=== PATIENT | male | born 1975 | race Hispanic/Latino ===

== ENCOUNTER 2020-05-05 11:08 | Inpatient (IN) | payer OTHER, SELFPAY ==
[~2020-05-05] VITALS: Ht 172.7 cm; Wt 108.9 kg
[2020-05-05 12:09] LABS: BASOPHILS % (AUTO) 0.2 % (0.0-5.0); EOSINOPHILS % (AUTO) 0.4 % (0.0-8.0); HEMATOCRIT 46.6 % (42-54); LYMPHOCYTES % (AUTO) 8.5 % (21.0-51.0); MEAN CORPUSCULAR HEMOGLOBIN 29.7 pg (27.0-33.0); MEAN CORPUSCULAR HGB CONC 34.8 g/dL (32.0-36.0); MEAN CORPUSCULAR VOLUME 85.3 fL (79-99); MONOCYTES % (AUTO) 9.2 % (3.0-13.0); NEUTROPHILS % (AUTO) 81.1 % (40.0-77.0); PLATELET COUNT (AUTO) 241 K/uL (130-400); RED BLOOD CELL COUNT(AUTO) 5.46 MIL/uL (4.50-6.20); RED CELL DISTRIBUTION WIDTH 12.2 % (11.0-15.5); WHITE BLOOD COUNT (AUTO) 19.7 K/uL (4.8-10.8)
[2020-05-05 12:24] LABS: CREATININE 0.8 mg/dL (0.5-1.5); POTASSIUM 3.2 mmol/L (3.5-5.1)
[2020-05-05 12:27] LABS: INR 0.99 (0.85-1.15); PROTHROMBIN TIME 10.8 SEC (9.6-11.6)
[2020-05-05 12:28] LABS: PARTIAL THROMBOPLASTIN TIME 24.8 SEC (26.3-35.5)
[2020-05-05 12:29] LABS: ALBUMIN 3.5 g/dL (3.5-5.0); BILIRUBIN,TOTAL 1.9 mg/dL (0.2-1.0); TOTAL PROTEIN, SERUM 8.2 g/dL (6.0-8.3)
[2020-05-05] MEDS ORDERED: VANCOMYCIN 1GM+NS 250ML 250 ML IV ONE (12:56)
[2020-05-05] MEDS ORDERED: ONDANSETRON HCL 4 MG/2 ML VIAL ONE (12:56)
[2020-05-05] MEDS ORDERED: ZOSYN 3.375GM+NS 50ML 50 ML IV ONE (12:56)
[2020-05-05] MEDS ORDERED: MORPHINE SULFATE 4 MG/1ML SYG ONE (12:57)
[2020-05-05] MEDS ORDERED: IOHEXOL-350 75 ML VIAL IV ONE (13:04)
[2020-05-05] MEDS ORDERED: NITROGLYCERIN 1GM/1 INCH PACKET TD ONE (13:39)
[2020-05-05] MEDS ORDERED: ASPIRIN 325 MG TABLET ONE (13:39)
[2020-05-05] MEDS ORDERED: POTASSIUM CHLORIDE 20 MEQ ERTAB PO ONE ×2 (14:22→18:07)
[2020-05-05] MEDS ORDERED: PHARMACY COMMUNICATION MISC SCH (15:15)
[2020-05-05] MEDS ORDERED: VANCOMYCIN PROTOCOL PER PHARMACY IV SCH (15:30)
[2020-05-05] MEDS ORDERED: POTASSIUM CHLORIDE 20 MEQ ERTAB PO SCH (18:00)
[2020-05-05 18:45] LABS: HEMOGLOBIN A1C 11.6 % (4.0-6.0)
[2020-05-05] MEDS: ZOSYN 3.375GM+NS 50ML 50 ML IV SCH (21:00)
[2020-05-05] MEDS: INSULIN GLARGINE 100 UNITS/ML 10 ML VIAL SQ SCH (22:30)
[2020-05-05] MEDS ORDERED: MORPHINE SULFATE 2 MG/ML 1ML SYG IV PRN (22:30)
[2020-05-05] MEDS ORDERED: MORPHINE SULFATE 2 MG/ML 1ML SYG ONE (22:42)
[2020-05-06] MEDS: ZOSYN 3.375GM+NS 50ML 50 ML IV SCH ×3 (05:00→20:20)
[2020-05-06] MEDS: INSULIN HUMULIN R 100 UNIT/ML 3ML SQ SCH ×7 (07:30→20:32)
[2020-05-06] MEDS ORDERED: ZOSYN 3.375GM+NS 50ML 50 ML IV ONE ×2 (08:06→13:56)
[2020-05-06] MEDS ORDERED: MORPHINE SULFATE 4 MG/1ML SYG ONE (08:06)
[2020-05-06] MEDS ORDERED: ONDANSETRON HCL 4 MG/2 ML VIAL ONE (08:06)
[2020-05-06] MEDS ORDERED: ASPIRIN 81MG TAB.CHEW ONE (08:06)
[2020-05-06] MEDS ORDERED: INSULIN HUMULIN R 100 UNIT/ML 3ML ONE ×3 (08:07→16:14)
[2020-05-06] MEDS: ASPIRIN 81MG TAB.CHEW PO SCH (09:00)
[2020-05-06] MEDS: CLOPIDOGREL BISULFATE 75 MG TAB PO SCH (11:00)
[2020-05-06] MEDS: FUROSEMIDE 40 MG TABLET PO SCH ×2 (11:00→23:08)
[2020-05-06] MEDS ORDERED: MORPHINE SULFATE 2 MG/ML 1ML SYG ONE (14:19)
[2020-05-06] MEDS ORDERED: VANCOMYCIN PROTOCOL PER PHARMACY IV SCH (14:30)
[2020-05-06] MEDS ORDERED: ASPI-1197 PO (14:54)
[2020-05-06] MEDS ORDERED: METF-445 PO (14:55)
[2020-05-06] MEDS ORDERED: METO-409 PO (14:57)
[2020-05-06] MEDS ORDERED: ATOR20TA65 PO (14:58)
[2020-05-06] MEDS ORDERED: TELM40TA8 PO (14:59)
[2020-05-06] MEDS ORDERED: FURO-151 PO (14:59)
[2020-05-06] MEDS ORDERED: SPIR25TA6 PO (15:00)
[2020-05-06] MEDS ORDERED: VANCOMYCIN 2.5 GM in SODIUM CHLORIDE 0.9% 500ML 500 ML IV ONE (15:00)
[2020-05-06] MEDS ORDERED: COMPOUND IV REFRIGERATED 1 EACH IVSOLN MISC PRN (15:00)
[2020-05-06] MEDS ORDERED: ISOS10TA2 PO (15:08)
[2020-05-06 17:29] VITALS: BP 127/71
[2020-05-06] MEDS: MORPHINE SULFATE 4 MG/1ML SYG IV PRN (18:32)
[2020-05-06] MEDS ORDERED: PHARMACY COMMUNICATION MISC SCH (19:45)
[2020-05-06 20:01] VITALS: BP 123/80
[2020-05-06] MEDS: METOPROLOL TARTRATE 50 MG TAB PO SCH (20:18)
[2020-05-06] MEDS: ISOSORBIDE MONONITRATE 20 MG TABLET PO SCH (20:18)
[2020-05-06] MEDS: INSULIN GLARGINE 100 UNITS/ML 10 ML VIAL SQ SCH (20:29)
[2020-05-06] MEDS ORDERED: KETOROLAC TROMETHAMINE 30MG/ML ONE (21:40)
[2020-05-06] MEDS: VANCOMYCIN 1GM+NS 250ML 250 ML IV SCH (23:08)
[2020-05-07] VITALS (20 sets, daily range): BP systolic 99–137; BP diastolic 54–89
[2020-05-07] MEDS: INSULIN HUMULIN R 100 UNIT/ML 3ML SQ SCH ×7 (04:14→21:53)
[2020-05-07] MEDS: ZOSYN 3.375GM+NS 50ML 50 ML IV SCH ×3 (05:10→20:58)
[2020-05-07 05:24] LABS: BASOPHILS % (AUTO) 0.3 % (0.0-5.0); EOSINOPHILS % (AUTO) 0.5 % (0.0-8.0); HEMATOCRIT 40.3 % (42-54); MEAN CORPUSCULAR HEMOGLOBIN 30.3 pg (27.0-33.0); MEAN CORPUSCULAR HGB CONC 34.5 g/dL (32.0-36.0); MEAN CORPUSCULAR VOLUME 87.8 fL (79-99); MONOCYTES % (AUTO) 10.4 % (3.0-13.0); NEUTROPHILS % (AUTO) 79.2 % (40.0-77.0); PLATELET COUNT (AUTO) 233 K/uL (130-400); RED BLOOD CELL COUNT(AUTO) 4.59 MIL/uL (4.50-6.20); RED CELL DISTRIBUTION WIDTH 12.1 % (11.0-15.5); WHITE BLOOD COUNT (AUTO) 17.5 K/uL (4.8-10.8)
[2020-05-07] MEDS: MORPHINE SULFATE 4 MG/1ML SYG IV PRN ×2 (05:32→18:23)
[2020-05-07 05:33] LABS: CREATININE 0.9 mg/dL (0.5-1.5); MAGNESIUM 1.7 mg/dL (1.80-2.40); POTASSIUM 3.5 mmol/L (3.5-5.1)
[2020-05-07] MEDS: VANCOMYCIN 1GM+NS 250ML 250 ML IV SCH (06:10)
[2020-05-07] MEDS: SPIRONOLACTONE 25 MG TAB PO SCH (09:00)
[2020-05-07] MEDS: METOPROLOL TARTRATE 50 MG TAB PO SCH ×2 (09:00→20:58)
[2020-05-07] MEDS: ATORVASTATIN CALCIUM 20 MG TABLET PO SCH (09:00)
[2020-05-07] MEDS: ISOSORBIDE MONONITRATE 20 MG TABLET PO SCH ×2 (09:00→20:59)
[2020-05-07] MEDS: ASPIRIN 81MG TAB.CHEW PO SCH (09:00)
[2020-05-07] MEDS: CLOPIDOGREL BISULFATE 75 MG TAB PO SCH (09:00)
[2020-05-07] MEDS ORDERED: PROPOFOL 10 MG/ML 20ML VIAL IV ONE ×4 (10:03→10:19)
[2020-05-07] MEDS ORDERED: DEXAMETHASONE SOD PHOSPHATE 10MG/ML 1ML VIAL ONE (10:03)
[2020-05-07] MEDS ORDERED: SUCCINYLCHOLINE 200MG/10ML SYR ONE (10:03)
[2020-05-07] MEDS ORDERED: LIDOCAINE PF 2% 5ML ABBOJECT ONE (10:03)
[2020-05-07] MEDS ORDERED: MIDAZOLAM HCL 1 MG/ML 2ML VIAL ONE (10:03)
[2020-05-07] MEDS ORDERED: FENTANYL CITRATE PF 50 MCG/1 ML 2ML VIAL ONE ×2 (10:04→10:18)
[2020-05-07] MEDS ORDERED: NEOSTIGMINE 5MG/5ML SYR IV ONE (10:04)
[2020-05-07] MEDS ORDERED: ROCURONIUM 10MG/1ML SYR 10 MG/ML ML ONE (10:04)
[2020-05-07] MEDS ORDERED: ONDANSETRON HCL 4 MG/2 ML VIAL ONE (10:04)
[2020-05-07] MEDS ORDERED: GLYCOPYRROLATE 1 MG/5 ML SYRINGE ONE (10:04)
[2020-05-07] MEDS: FUROSEMIDE 40 MG TABLET PO SCH (11:00)
[2020-05-07] MEDS ORDERED: VANCOMYCIN 1.5 GM in SODIUM CHLORIDE 0.9% 250 ML IV ONE (16:30)
[2020-05-07] MEDS ORDERED: SODIUM CHLORIDE 0.9% 500ML 500 ML IV ONE (21:03)
[2020-05-07] MEDS: KETOROLAC TROMETHAMINE 30MG/ML IV PRN (21:27)
[2020-05-07] MEDS: INSULIN GLARGINE 100 UNITS/ML 10 ML VIAL SQ SCH (21:52)
[2020-05-08] VITALS (7 sets, daily range): BP systolic 87–118; BP diastolic 52–81
[2020-05-08] MEDS: VANCOMYCIN 1GM+NS 250ML 250 ML IV SCH ×4 (00:03→23:10)
[2020-05-08] MEDS: FUROSEMIDE 40 MG TABLET PO SCH ×3 (00:03→23:10)
[2020-05-08 05:25] LABS: BASOPHILS % (AUTO) 0.4 % (0.0-5.0); EOSINOPHILS % (AUTO) 0.7 % (0.0-8.0); HEMATOCRIT 40.3 % (42-54); LYMPHOCYTES % (AUTO) 11.8 % (21.0-51.0); MEAN CORPUSCULAR HEMOGLOBIN 29.8 pg (27.0-33.0); MEAN CORPUSCULAR HGB CONC 33.5 g/dL (32.0-36.0); MONOCYTES % (AUTO) 11.4 % (3.0-13.0); NEUTROPHILS % (AUTO) 75.1 % (40.0-77.0); PLATELET COUNT (AUTO) 279 K/uL (130-400); RED BLOOD CELL COUNT(AUTO) 4.53 MIL/uL (4.50-6.20); RED CELL DISTRIBUTION WIDTH 12.2 % (11.0-15.5); WHITE BLOOD COUNT (AUTO) 16.1 K/uL (4.8-10.8)
[2020-05-08 05:38] LABS: POTASSIUM 3.6 mmol/L (3.5-5.1)
[2020-05-08] MEDS: ZOSYN 3.375GM+NS 50ML 50 ML IV SCH ×3 (05:47→20:31)
[2020-05-08] MEDS: INSULIN HUMULIN R 100 UNIT/ML 3ML SQ SCH ×7 (06:22→20:54)
[2020-05-08] MEDS: MORPHINE SULFATE 4 MG/1ML SYG IV PRN ×3 (07:38→08:44)
[2020-05-08] MEDS ORDERED: PHARMACY COMMUNICATION MISC SCH (09:15)
[2020-05-08] MEDS: METOPROLOL TARTRATE 50 MG TAB PO SCH ×2 (09:59→20:31)
[2020-05-08] MEDS: ATORVASTATIN CALCIUM 20 MG TABLET PO SCH (09:59)
[2020-05-08] MEDS: ASPIRIN 81MG TAB.CHEW PO SCH (09:59)
[2020-05-08] MEDS: SPIRONOLACTONE 25 MG TAB PO SCH (09:59)
[2020-05-08] MEDS: ISOSORBIDE MONONITRATE 20 MG TABLET PO SCH ×2 (10:00→20:31)
[2020-05-08] MEDS: CLOPIDOGREL BISULFATE 75 MG TAB PO SCH (10:00)
[2020-05-08] MEDS: KETOROLAC TROMETHAMINE 30MG/ML IV PRN ×2 (10:01→20:32)
[2020-05-08] MEDS: POLYETHYLENE GLYCOL 3350 17 GM POWD.PACK PO SCH (11:21)
[2020-05-08] MEDS ORDERED: SODIUM CHLORIDE 0.9% 250 ML IV ONE (12:26)
[2020-05-08] MEDS: INSULIN GLARGINE 100 UNITS/ML 10 ML VIAL SQ SCH (20:54)
[2020-05-09] MEDS: MORPHINE SULFATE 2 MG/ML 1ML SYG IVP PRN ×2 (03:33→21:25)
[2020-05-09 03:46] VITALS: BP 129/69
[2020-05-09] MEDS: ZOSYN 3.375GM+NS 50ML 50 ML IV SCH (05:48)
[2020-05-09] MEDS: KETOROLAC TROMETHAMINE 30MG/ML IV PRN ×2 (05:48→12:27)
[2020-05-09 06:12] LABS: BASOPHILS % (AUTO) 0.4 % (0.0-5.0); EOSINOPHILS % (AUTO) 1.3 % (0.0-8.0); HEMATOCRIT 37.2 % (42-54); LYMPHOCYTES % (AUTO) 16.7 % (21.0-51.0); MEAN CORPUSCULAR HGB CONC 34.4 g/dL (32.0-36.0); MEAN CORPUSCULAR VOLUME 87.3 fL (79-99); MONOCYTES % (AUTO) 10.9 % (3.0-13.0); NEUTROPHILS % (AUTO) 70.3 % (40.0-77.0); PLATELET COUNT (AUTO) 291 K/uL (130-400); RED BLOOD CELL COUNT(AUTO) 4.26 MIL/uL (4.50-6.20); RED CELL DISTRIBUTION WIDTH 11.9 % (11.0-15.5); WHITE BLOOD COUNT (AUTO) 13.7 K/uL (4.8-10.8)
[2020-05-09] MEDS: INSULIN HUMULIN R 100 UNIT/ML 3ML SQ SCH ×7 (06:31→21:30)
[2020-05-09 06:32] LABS: CREATININE 0.8 mg/dL (0.5-1.5); POTASSIUM 3.5 mmol/L (3.5-5.1)
[2020-05-09 06:50] LABS: B-TYPE NATRIURETIC PEPTIDE 231 pg/mL (0-100)
[2020-05-09] MEDS: VANCOMYCIN 1GM+NS 250ML 250 ML IV SCH ×2 (07:49→15:37)
[2020-05-09 07:56] LABS: MAGNESIUM 1.8 mg/dL (1.80-2.40)
[2020-05-09 08:03] VITALS: BP 101/61
[2020-05-09] MEDS: POLYETHYLENE GLYCOL 3350 17 GM POWD.PACK PO SCH (08:20)
[2020-05-09] MEDS: CLOPIDOGREL BISULFATE 75 MG TAB PO SCH (08:21)
[2020-05-09] MEDS: ASPIRIN 81MG TAB.CHEW PO SCH (08:21)
[2020-05-09] MEDS: ATORVASTATIN CALCIUM 20 MG TABLET PO SCH (08:21)
[2020-05-09] MEDS: ISOSORBIDE MONONITRATE 20 MG TABLET PO SCH ×2 (08:30→21:25)
[2020-05-09] MEDS: METOPROLOL TARTRATE 50 MG TAB PO SCH ×2 (09:00→21:24)
[2020-05-09] MEDS: SPIRONOLACTONE 25 MG TAB PO SCH (09:59)
[2020-05-09] MEDS: FUROSEMIDE 40 MG TABLET PO SCH (11:00)
[2020-05-09] MEDS: MAGNESIUM OXIDE 400 MG TABLET PO SCH ×2 (11:55→12:17)
[2020-05-09] MEDS: POTASSIUM CHLORIDE 20 MEQ ERTAB PO SCH (11:56)
[2020-05-09 12:14] VITALS: BP 91/46
[2020-05-09] MEDS: CEFEPIME HCL 2 GM VIAL IVP SCH (12:37)
[2020-05-09] MEDS: HYDROCODONE/ACETAMINOPHEN 5/325 MG TAB PO PRN (15:30)
[2020-05-09 16:25] VITALS: BP 120/74
[2020-05-09 19:52] VITALS: BP 143/90
[2020-05-09] MEDS: INSULIN GLARGINE 100 UNITS/ML 10 ML VIAL SQ SCH (21:30)
[2020-05-09 23:33] VITALS: BP 120/64
[2020-05-10] VITALS (7 sets, daily range): BP systolic 107–126; BP diastolic 58–74
[2020-05-10] MEDS: FUROSEMIDE 40 MG TABLET PO SCH ×3 (00:56→20:41)
[2020-05-10] MEDS: CEFEPIME HCL 2 GM VIAL IVP SCH (00:57)
[2020-05-10] MEDS: HYDROCODONE/ACETAMINOPHEN 5/325 MG TAB PO PRN ×2 (00:57→08:29)
[2020-05-10 06:01] LABS: MAGNESIUM 1.8 mg/dL (1.80-2.40)
[2020-05-10] MEDS: INSULIN HUMULIN R 100 UNIT/ML 3ML SQ SCH ×7 (06:30→20:54)
[2020-05-10] MEDS: VANCOMYCIN 1GM+NS 250ML 250 ML IV SCH ×2 (06:33→14:09)
[2020-05-10] MEDS: MORPHINE SULFATE 2 MG/ML 1ML SYG IVP PRN ×2 (06:37→14:09)
[2020-05-10] MEDS: MAGNESIUM OXIDE 400 MG TABLET PO SCH ×2 (07:25→08:03)
[2020-05-10] MEDS: ASPIRIN 81MG TAB.CHEW PO SCH (08:03)
[2020-05-10] MEDS: CLOPIDOGREL BISULFATE 75 MG TAB PO SCH (08:04)
[2020-05-10] MEDS: POTASSIUM CHLORIDE 20 MEQ ERTAB PO SCH (08:04)
[2020-05-10] MEDS: ATORVASTATIN CALCIUM 20 MG TABLET PO SCH (08:06)
[2020-05-10] MEDS: POLYETHYLENE GLYCOL 3350 17 GM POWD.PACK PO SCH (08:06)
[2020-05-10] MEDS: SPIRONOLACTONE 25 MG TAB PO SCH (08:06)
[2020-05-10] MEDS: ISOSORBIDE MONONITRATE 20 MG TABLET PO SCH ×2 (09:41→20:41)
[2020-05-10] MEDS: METOPROLOL TARTRATE 50 MG TAB PO SCH ×2 (11:04→20:41)
[2020-05-10] MEDS: KETOROLAC TROMETHAMINE 30MG/ML IV PRN ×3 (16:30→17:35)
[2020-05-10] MEDS: VANCOMYCIN 1.25 GM in SODIUM CHLORIDE 0.9% 250 ML IV SCH (20:40)
[2020-05-10] MEDS: INSULIN GLARGINE 100 UNITS/ML 10 ML VIAL SQ SCH (20:54)
[2020-05-11] MEDS: MORPHINE SULFATE 2 MG/ML 1ML SYG IVP PRN ×3 (03:16→23:04)
[2020-05-11 03:39] VITALS: BP 132/67
[2020-05-11] MEDS: VANCOMYCIN 1.25 GM in SODIUM CHLORIDE 0.9% 250 ML IV SCH ×3 (06:56→21:49)
[2020-05-11] MEDS: INSULIN HUMULIN R 100 UNIT/ML 3ML SQ SCH ×7 (06:57→20:47)
[2020-05-11 07:52] LABS: BASOPHILS % (AUTO) 0.5 % (0.0-5.0); EOSINOPHILS % (AUTO) 1.4 % (0.0-8.0); LYMPHOCYTES % (AUTO) 18.5 % (21.0-51.0); MEAN CORPUSCULAR HEMOGLOBIN 29.8 pg (27.0-33.0); MEAN CORPUSCULAR HGB CONC 33.8 g/dL (32.0-36.0); MEAN CORPUSCULAR VOLUME 88.2 fL (79-99); MONOCYTES % (AUTO) 10.2 % (3.0-13.0); PLATELET COUNT (AUTO) 375 K/uL (130-400); RED BLOOD CELL COUNT(AUTO) 4.76 MIL/uL (4.50-6.20); RED CELL DISTRIBUTION WIDTH 11.9 % (11.0-15.5); WHITE BLOOD COUNT (AUTO) 11.8 K/uL (4.8-10.8)
[2020-05-11] MEDS: SPIRONOLACTONE 25 MG TAB PO SCH (08:12)
[2020-05-11] MEDS: POLYETHYLENE GLYCOL 3350 17 GM POWD.PACK PO SCH (08:12)
[2020-05-11] MEDS: ATORVASTATIN CALCIUM 20 MG TABLET PO SCH (08:12)
[2020-05-11] MEDS: POTASSIUM CHLORIDE 20 MEQ ERTAB PO SCH (08:13)
[2020-05-11] MEDS: ASPIRIN 81MG TAB.CHEW PO SCH (08:13)
[2020-05-11] MEDS: ISOSORBIDE MONONITRATE 20 MG TABLET PO SCH ×2 (08:14→20:42)
[2020-05-11] MEDS: CLOPIDOGREL BISULFATE 75 MG TAB PO SCH (08:15)
[2020-05-11] MEDS: MAGNESIUM OXIDE 400 MG TABLET PO SCH ×2 (08:18→08:52)
[2020-05-11] MEDS: HYDROCODONE/ACETAMINOPHEN 5/325 MG TAB PO PRN (08:24)
[2020-05-11 08:35] VITALS: BP 107/64
[2020-05-11] MEDS: METOPROLOL TARTRATE 50 MG TAB PO SCH ×2 (09:00→20:42)
[2020-05-11] MEDS: FUROSEMIDE 40 MG TABLET PO SCH ×2 (11:52→22:54)
[2020-05-11 13:11] VITALS: BP 112/69
[2020-05-11] MEDS: KETOROLAC TROMETHAMINE 30MG/ML IV PRN (15:43)
[2020-05-11 16:50] VITALS: BP 121/65
[2020-05-11 20:00] VITALS: BP 124/78
[2020-05-11] MEDS: INSULIN GLARGINE 100 UNITS/ML 10 ML VIAL SQ SCH (20:46)
[2020-05-12] VITALS (7 sets, daily range): BP systolic 103–128; BP diastolic 61–78
[2020-05-12] MEDS: HYDROCODONE/ACETAMINOPHEN 5/325 MG TAB PO PRN ×2 (00:10→21:51)
[2020-05-12 05:15] LABS: BASOPHILS % (AUTO) 0.4 % (0.0-5.0); EOSINOPHILS % (AUTO) 1.8 % (0.0-8.0); HEMATOCRIT 43.9 % (42-54); LYMPHOCYTES % (AUTO) 21.6 % (21.0-51.0); MEAN CORPUSCULAR HEMOGLOBIN 29.5 pg (27.0-33.0); MEAN CORPUSCULAR HGB CONC 33.5 g/dL (32.0-36.0); NEUTROPHILS % (AUTO) 66.8 % (40.0-77.0); PLATELET COUNT (AUTO) 398 K/uL (130-400); RED BLOOD CELL COUNT(AUTO) 4.99 MIL/uL (4.50-6.20); RED CELL DISTRIBUTION WIDTH 11.9 % (11.0-15.5); WHITE BLOOD COUNT (AUTO) 11.3 K/uL (4.8-10.8)
[2020-05-12 05:32] LABS: CREATININE 1.1 mg/dL (0.5-1.5); MAGNESIUM 1.9 mg/dL (1.80-2.40); POTASSIUM 4.3 mmol/L (3.5-5.1)
[2020-05-12] MEDS: VANCOMYCIN 1.25 GM in SODIUM CHLORIDE 0.9% 250 ML IV SCH ×3 (06:30→20:49)
[2020-05-12] MEDS: INSULIN HUMULIN R 100 UNIT/ML 3ML SQ SCH ×7 (06:31→20:47)
[2020-05-12] MEDS: KETOROLAC TROMETHAMINE 30MG/ML IV PRN ×2 (06:37→13:35)
[2020-05-12] MEDS: ISOSORBIDE MONONITRATE 20 MG TABLET PO SCH ×2 (08:00→20:47)
[2020-05-12] MEDS: POLYETHYLENE GLYCOL 3350 17 GM POWD.PACK PO SCH (08:00)
[2020-05-12] MEDS: CLOPIDOGREL BISULFATE 75 MG TAB PO SCH (08:02)
[2020-05-12] MEDS: ATORVASTATIN CALCIUM 20 MG TABLET PO SCH (08:02)
[2020-05-12] MEDS: POTASSIUM CHLORIDE 20 MEQ ERTAB PO SCH (08:03)
[2020-05-12] MEDS: SPIRONOLACTONE 25 MG TAB PO SCH (08:03)
[2020-05-12] MEDS: ASPIRIN 81MG TAB.CHEW PO SCH (08:03)
[2020-05-12] MEDS: MAGNESIUM OXIDE 400 MG TABLET PO SCH ×2 (08:05→08:08)
[2020-05-12] MEDS: METOPROLOL TARTRATE 50 MG TAB PO SCH ×2 (08:35→20:46)
[2020-05-12] MEDS: MORPHINE SULFATE 2 MG/ML 1ML SYG IVP PRN ×2 (11:26→17:27)
[2020-05-12] MEDS: FUROSEMIDE 40 MG TABLET PO SCH ×2 (11:26→20:48)
[2020-05-12] MEDS: INSULIN GLARGINE 100 UNITS/ML 10 ML VIAL SQ SCH (20:57)
[2020-05-13 03:33] VITALS: BP 114/79
[2020-05-13] MEDS: VANCOMYCIN 1.25 GM in SODIUM CHLORIDE 0.9% 250 ML IV SCH ×3 (05:53→22:15)
[2020-05-13 06:14] LABS: BASOPHILS % (AUTO) 0.5 % (0.0-5.0); EOSINOPHILS % (AUTO) 1.5 % (0.0-8.0); HEMATOCRIT 44.1 % (42-54); LYMPHOCYTES % (AUTO) 18.7 % (21.0-51.0); MEAN CORPUSCULAR HEMOGLOBIN 29.8 pg (27.0-33.0); MEAN CORPUSCULAR HGB CONC 34.2 g/dL (32.0-36.0); MEAN CORPUSCULAR VOLUME 87.2 fL (79-99); MONOCYTES % (AUTO) 7.9 % (3.0-13.0); NEUTROPHILS % (AUTO) 70.9 % (40.0-77.0); PLATELET COUNT (AUTO) 444 K/uL (130-400); RED BLOOD CELL COUNT(AUTO) 5.06 MIL/uL (4.50-6.20); RED CELL DISTRIBUTION WIDTH 11.9 % (11.0-15.5); WHITE BLOOD COUNT (AUTO) 12.9 K/uL (4.8-10.8)
[2020-05-13 06:30] LABS: MAGNESIUM 1.9 mg/dL (1.80-2.40); POTASSIUM 4.2 mmol/L (3.5-5.1)
[2020-05-13] MEDS: INSULIN HUMULIN R 100 UNIT/ML 3ML SQ SCH ×7 (06:40→20:40)
[2020-05-13] MEDS: KETOROLAC TROMETHAMINE 30MG/ML IV PRN (07:49)
[2020-05-13 08:00] VITALS: BP 123/68
[2020-05-13] MEDS: CLOPIDOGREL BISULFATE 75 MG TAB PO SCH (08:01)
[2020-05-13] MEDS: ASPIRIN 81MG TAB.CHEW PO SCH (08:01)
[2020-05-13] MEDS: MAGNESIUM OXIDE 400 MG TABLET PO SCH ×2 (08:01→09:00)
[2020-05-13] MEDS: ATORVASTATIN CALCIUM 20 MG TABLET PO SCH (08:02)
[2020-05-13] MEDS: SPIRONOLACTONE 25 MG TAB PO SCH (08:02)
[2020-05-13] MEDS: POTASSIUM CHLORIDE 20 MEQ ERTAB PO SCH (08:03)
[2020-05-13] MEDS: ISOSORBIDE MONONITRATE 20 MG TABLET PO SCH ×2 (08:03→20:29)
[2020-05-13] MEDS: POLYETHYLENE GLYCOL 3350 17 GM POWD.PACK PO SCH (08:03)
[2020-05-13] MEDS: HYDROCODONE/ACETAMINOPHEN 5/325 MG TAB PO PRN ×2 (09:59→20:29)
[2020-05-13] MEDS: METOPROLOL TARTRATE 50 MG TAB PO SCH ×2 (10:42→20:29)
[2020-05-13 12:00] VITALS: BP 102/64
[2020-05-13] MEDS: FUROSEMIDE 40 MG TABLET PO SCH ×2 (12:24→20:28)
[2020-05-13 16:00] VITALS: BP 100/76
[2020-05-13] MEDS: MORPHINE SULFATE 2 MG/ML 1ML SYG IVP PRN (16:19)
[2020-05-13 19:00] VITALS: BP 120/62
[2020-05-13] MEDS: DOCUSATE SODIUM 100 MG CAP PO SCH (20:28)
[2020-05-13] MEDS: INSULIN GLARGINE 100 UNITS/ML 10 ML VIAL SQ SCH (20:40)
[2020-05-13 23:00] VITALS: BP 102/62
[2020-05-14 03:00] VITALS: BP 111/67
[2020-05-14] MEDS: INSULIN HUMULIN R 100 UNIT/ML 3ML SQ SCH ×7 (05:53→22:19)
[2020-05-14] MEDS: VANCOMYCIN 1.25 GM in SODIUM CHLORIDE 0.9% 250 ML IV SCH ×2 (05:53→14:57)
[2020-05-14 07:16] LABS: BASOPHILS % (AUTO) 0.5 % (0.0-5.0); EOSINOPHILS % (AUTO) 1.3 % (0.0-8.0); HEMATOCRIT 46.7 % (42-54); LYMPHOCYTES % (AUTO) 18.9 % (21.0-51.0); MEAN CORPUSCULAR HEMOGLOBIN 29.2 pg (27.0-33.0); MEAN CORPUSCULAR HGB CONC 33.4 g/dL (32.0-36.0); MEAN CORPUSCULAR VOLUME 87.3 fL (79-99); MONOCYTES % (AUTO) 7.7 % (3.0-13.0); PLATELET COUNT (AUTO) 481 K/uL (130-400); RED BLOOD CELL COUNT(AUTO) 5.35 MIL/uL (4.50-6.20); WHITE BLOOD COUNT (AUTO) 12.8 K/uL (4.8-10.8)
[2020-05-14 07:20] LABS: POTASSIUM 4.6 mmol/L (3.5-5.1)
[2020-05-14] MEDS: POTASSIUM CHLORIDE 20 MEQ ERTAB PO SCH (08:34)
[2020-05-14] MEDS: DOCUSATE SODIUM 100 MG CAP PO SCH ×2 (08:35→22:04)
[2020-05-14] MEDS: ISOSORBIDE MONONITRATE 20 MG TABLET PO SCH ×2 (08:35→22:05)
[2020-05-14] MEDS: MAGNESIUM OXIDE 400 MG TABLET PO SCH ×2 (08:36→08:47)
[2020-05-14] MEDS: ATORVASTATIN CALCIUM 20 MG TABLET PO SCH (08:36)
[2020-05-14] MEDS: CLOPIDOGREL BISULFATE 75 MG TAB PO SCH (08:36)
[2020-05-14] MEDS: HYDROCODONE/ACETAMINOPHEN 5/325 MG TAB PO PRN (08:36)
[2020-05-14] MEDS: POLYETHYLENE GLYCOL 3350 17 GM POWD.PACK PO SCH (08:37)
[2020-05-14] MEDS: ASPIRIN 81MG TAB.CHEW PO SCH (08:37)
[2020-05-14] MEDS: SPIRONOLACTONE 25 MG TAB PO SCH (08:37)
[2020-05-14 09:01] VITALS: BP 113/67
[2020-05-14] MEDS: METOPROLOL TARTRATE 50 MG TAB PO SCH ×2 (11:30→22:05)
[2020-05-14 11:49] VITALS: BP 110/73
[2020-05-14] MEDS: FUROSEMIDE 40 MG TABLET PO SCH ×2 (12:32→22:05)
[2020-05-14] MEDS: MEROPENEM 1 GM VIAL IVP SCH ×2 (14:57→22:04)
[2020-05-14 16:45] VITALS: BP 103/59
[2020-05-14] MEDS: KETOROLAC TROMETHAMINE 15MG/ML IV PRN (16:57)
[2020-05-14 19:00] VITALS: BP 128/69
[2020-05-14] MEDS: INSULIN GLARGINE 100 UNITS/ML 10 ML VIAL SQ SCH (22:20)
[2020-05-14 23:00] VITALS: BP 93/50
[2020-05-15] VITALS (19 sets, daily range): BP systolic 82–118; BP diastolic 40–71
[2020-05-15 06:04] LABS: BASOPHILS % (AUTO) 0.5 % (0.0-5.0); EOSINOPHILS % (AUTO) 1.4 % (0.0-8.0); LYMPHOCYTES % (AUTO) 24.2 % (21.0-51.0); MEAN CORPUSCULAR HEMOGLOBIN 29.4 pg (27.0-33.0); MEAN CORPUSCULAR HGB CONC 33.3 g/dL (32.0-36.0); MEAN CORPUSCULAR VOLUME 88.2 fL (79-99); MONOCYTES % (AUTO) 8.6 % (3.0-13.0); NEUTROPHILS % (AUTO) 64.8 % (40.0-77.0); PLATELET COUNT (AUTO) 497 K/uL (130-400); RED CELL DISTRIBUTION WIDTH 11.9 % (11.0-15.5); WHITE BLOOD COUNT (AUTO) 12.1 K/uL (4.8-10.8)
[2020-05-15 06:14] LABS: CREATININE 0.9 mg/dL (0.5-1.5); MAGNESIUM 1.9 mg/dL (1.80-2.40)
[2020-05-15] MEDS: MEROPENEM 1 GM VIAL IVP SCH ×3 (06:26→21:57)
[2020-05-15] MEDS: INSULIN HUMULIN R 100 UNIT/ML 3ML SQ SCH ×7 (06:27→20:37)
[2020-05-15] MEDS: VANCOMYCIN 1GM+NS 250ML 250 ML IV SCH ×3 (06:27→21:58)
[2020-05-15] MEDS: KETOROLAC TROMETHAMINE 15MG/ML IV PRN ×3 (06:58→19:49)
[2020-05-15] MEDS ORDERED: ONDANSETRON HCL 4 MG/2 ML VIAL ONE ×2 (08:18→11:20)
[2020-05-15] MEDS ORDERED: MIDAZOLAM HCL 1 MG/ML 2ML VIAL ONE (08:18)
[2020-05-15] MEDS ORDERED: LIDOCAINE PF 2% 5ML ABBOJECT ONE (08:18)
[2020-05-15] MEDS ORDERED: PROPOFOL 10 MG/ML 20ML VIAL IV ONE ×2 (08:18→10:44)
[2020-05-15] MEDS ORDERED: ROCURONIUM 10MG/1ML SYR 10 MG/ML ML ONE (08:18)
[2020-05-15] MEDS ORDERED: FENTANYL CITRATE PF 50 MCG/1 ML 2ML VIAL ONE (08:19)
[2020-05-15] MEDS: ATORVASTATIN CALCIUM 40 MG TABLET PO SCH (09:00)
[2020-05-15] MEDS: DOCUSATE SODIUM 100 MG CAP PO SCH ×2 (09:00→19:50)
[2020-05-15] MEDS: POLYETHYLENE GLYCOL 3350 17 GM POWD.PACK PO SCH (09:00)
[2020-05-15] MEDS: SPIRONOLACTONE 25 MG TAB PO SCH (09:00)
[2020-05-15] MEDS: MAGNESIUM OXIDE 400 MG TABLET PO SCH (09:00)
[2020-05-15] MEDS: METOPROLOL TARTRATE 50 MG TAB PO SCH ×2 (09:00→19:51)
[2020-05-15] MEDS: ISOSORBIDE MONONITRATE 20 MG TABLET PO SCH ×2 (09:28→19:50)
[2020-05-15] MEDS ORDERED: BUPIVACAINE/PF 0.5% 30ML VIAL ONE (09:38)
[2020-05-15] MEDS ORDERED: PHENYLEPHRINE HCL 10 MG/ML 1ML VIAL IV ONE (10:41)
[2020-05-15] MEDS ORDERED: NEOSTIGMINE 5MG/5ML SYR IV ONE (10:42)
[2020-05-15] MEDS ORDERED: GLYCOPYRROLATE 1 MG/5 ML SYRINGE ONE (10:42)
[2020-05-15] MEDS: FUROSEMIDE 40 MG TABLET PO SCH ×2 (11:00→22:18)
[2020-05-15] MEDS ORDERED: MEPERIDINE-PF 25 MG/ML SYG ONE (11:05)
[2020-05-15] MEDS: ONDANSETRON HCL 4 MG/2 ML VIAL IVP PRN (11:27)
[2020-05-15] MEDS ORDERED: KETOROLAC TROMETHAMINE 30MG/ML ONE (11:35)
[2020-05-15] MEDS: MORPHINE SULFATE 2 MG/ML 1ML SYG IVP PRN (12:30)
[2020-05-15] MEDS ORDERED: ASPIRIN 81MG TAB.CHEW PO SCH (17:15)
[2020-05-15] MEDS: INSULIN GLARGINE 100 UNITS/ML 10 ML VIAL SQ SCH (20:38)
[2020-05-16 03:00] VITALS: BP 95/64
[2020-05-16] MEDS: KETOROLAC TROMETHAMINE 15MG/ML IV PRN (03:53)
[2020-05-16 04:34] LABS: BASOPHILS % (AUTO) 0.6 % (0.0-5.0); EOSINOPHILS % (AUTO) 1.7 % (0.0-8.0); HEMATOCRIT 40.6 % (42-54); LYMPHOCYTES % (AUTO) 22.7 % (21.0-51.0); MEAN CORPUSCULAR HEMOGLOBIN 29.5 pg (27.0-33.0); MEAN CORPUSCULAR HGB CONC 33.5 g/dL (32.0-36.0); MEAN CORPUSCULAR VOLUME 88.1 fL (79-99); MONOCYTES % (AUTO) 8.1 % (3.0-13.0); NEUTROPHILS % (AUTO) 66.5 % (40.0-77.0); PLATELET COUNT (AUTO) 461 K/uL (130-400); RED BLOOD CELL COUNT(AUTO) 4.61 MIL/uL (4.50-6.20); RED CELL DISTRIBUTION WIDTH 11.9 % (11.0-15.5); WHITE BLOOD COUNT (AUTO) 12.6 K/uL (4.8-10.8)
[2020-05-16 05:11] LABS: CREATININE 1.1 mg/dL (0.5-1.5); POTASSIUM 4.1 mmol/L (3.5-5.1)
[2020-05-16] MEDS: MEROPENEM 1 GM VIAL IVP SCH ×3 (05:44→21:53)
[2020-05-16] MEDS: VANCOMYCIN 1GM+NS 250ML 250 ML IV SCH ×3 (05:44→21:53)
[2020-05-16] MEDS: INSULIN HUMULIN R 100 UNIT/ML 3ML SQ SCH ×8 (06:48→20:55)
[2020-05-16 08:24] VITALS: BP 111/68
[2020-05-16] MEDS: POLYETHYLENE GLYCOL 3350 17 GM POWD.PACK PO SCH (09:01)
[2020-05-16] MEDS: MAGNESIUM OXIDE 400 MG TABLET PO SCH (09:01)
[2020-05-16] MEDS: ATORVASTATIN CALCIUM 40 MG TABLET PO SCH (09:01)
[2020-05-16] MEDS: DOCUSATE SODIUM 100 MG CAP PO SCH ×2 (09:01→20:42)
[2020-05-16] MEDS: ISOSORBIDE MONONITRATE 20 MG TABLET PO SCH ×2 (09:01→20:42)
[2020-05-16] MEDS: SPIRONOLACTONE 25 MG TAB PO SCH (09:03)
[2020-05-16] MEDS: ASPIRIN 81MG TAB.CHEW PO SCH (09:24)
[2020-05-16] MEDS: CLOPIDOGREL BISULFATE 75 MG TAB PO SCH (09:24)
[2020-05-16] MEDS: MORPHINE SULFATE 2 MG/ML 1ML SYG IVP PRN (09:25)
[2020-05-16] MEDS: ONDANSETRON HCL 4 MG/2 ML VIAL IVP PRN (09:27)
[2020-05-16] MEDS ORDERED: HYDROMORPHONE HCL 0.5 MG/0.5 ML ML IVP SCH (11:30)
[2020-05-16] MEDS: METOPROLOL TARTRATE 50 MG TAB PO SCH ×2 (11:54→20:42)
[2020-05-16 12:46] VITALS: BP 102/56
[2020-05-16 16:25] VITALS: BP 116/67
[2020-05-16] MEDS: INSULIN GLARGINE 100 UNITS/ML 10 ML VIAL SQ SCH (20:56)
[2020-05-16 21:31] VITALS: BP 119/64
[2020-05-16] MEDS: FUROSEMIDE 20 MG TABLET PO SCH (22:05)
[2020-05-17 00:08] VITALS: BP 109/61
[2020-05-17] MEDS: KETOROLAC TROMETHAMINE 15MG/ML IV PRN ×3 (00:38→13:40)
[2020-05-17] MEDS: MORPHINE SULFATE 2 MG/ML 1ML SYG IVP PRN ×2 (02:00→15:01)
[2020-05-17 04:07] VITALS: BP 99/53
[2020-05-17 05:14] LABS: BASOPHILS % (AUTO) 0.7 % (0.0-5.0); EOSINOPHILS % (AUTO) 1.3 % (0.0-8.0); HEMATOCRIT 42.7 % (42-54); LYMPHOCYTES % (AUTO) 22.4 % (21.0-51.0); MEAN CORPUSCULAR HEMOGLOBIN 29.4 pg (27.0-33.0); MEAN CORPUSCULAR VOLUME 89.1 fL (79-99); MONOCYTES % (AUTO) 10.3 % (3.0-13.0); NEUTROPHILS % (AUTO) 64.8 % (40.0-77.0); PLATELET COUNT (AUTO) 484 K/uL (130-400); RED BLOOD CELL COUNT(AUTO) 4.79 MIL/uL (4.50-6.20); RED CELL DISTRIBUTION WIDTH 11.9 % (11.0-15.5); WHITE BLOOD COUNT (AUTO) 11.7 K/uL (4.8-10.8)
[2020-05-17 05:15] LABS: POTASSIUM 4.1 mmol/L (3.5-5.1)
[2020-05-17] MEDS: VANCOMYCIN 1GM+NS 250ML 250 ML IV SCH ×3 (05:49→21:49)
[2020-05-17] MEDS: MEROPENEM 1 GM VIAL IVP SCH ×3 (05:49→21:49)
[2020-05-17] MEDS: INSULIN HUMULIN R 100 UNIT/ML 3ML SQ SCH ×6 (06:23→16:43)
[2020-05-17 08:17] VITALS: BP 107/61
[2020-05-17] MEDS: ATORVASTATIN CALCIUM 40 MG TABLET PO SCH (08:20)
[2020-05-17] MEDS: MAGNESIUM OXIDE 400 MG TABLET PO SCH (08:20)
[2020-05-17] MEDS: SPIRONOLACTONE 25 MG TAB PO SCH (08:21)
[2020-05-17] MEDS: ASPIRIN 81MG TAB.CHEW PO SCH (08:21)
[2020-05-17] MEDS: CLOPIDOGREL BISULFATE 75 MG TAB PO SCH (08:21)
[2020-05-17] MEDS: DOCUSATE SODIUM 100 MG CAP PO SCH ×2 (08:21→21:52)
[2020-05-17] MEDS: POLYETHYLENE GLYCOL 3350 17 GM POWD.PACK PO SCH (08:22)
[2020-05-17] MEDS: METOPROLOL TARTRATE 50 MG TAB PO SCH ×2 (09:00→21:52)
[2020-05-17] MEDS: ISOSORBIDE MONONITRATE 20 MG TABLET PO SCH ×2 (09:03→21:52)
[2020-05-17 11:35] VITALS: BP 113/63
[2020-05-17] MEDS: FUROSEMIDE 20 MG TABLET PO SCH ×2 (12:04→23:43)
[2020-05-17 16:05] VITALS: BP 118/60
[2020-05-17 20:08] VITALS: BP 157/92
[2020-05-17] MEDS: INSULIN GLARGINE 100 UNITS/ML 10 ML VIAL SQ SCH (21:00)
[2020-05-18 00:12] VITALS: BP 111/67
[2020-05-18] MEDS: KETOROLAC TROMETHAMINE 15MG/ML IV PRN ×3 (03:41→23:09)
[2020-05-18 04:09] VITALS: BP 107/60
[2020-05-18] MEDS: MORPHINE SULFATE 2 MG/ML 1ML SYG IVP PRN ×2 (05:43→14:22)
[2020-05-18] MEDS: VANCOMYCIN 1GM+NS 250ML 250 ML IV SCH ×3 (05:53→22:43)
[2020-05-18] MEDS: MEROPENEM 1 GM VIAL IVP SCH ×3 (05:53→22:43)
[2020-05-18] MEDS: INSULIN HUMULIN R 100 UNIT/ML 3ML SQ SCH ×8 (06:00→21:00)
[2020-05-18 06:17] LABS: BASOPHILS % (AUTO) 0.7 % (0.0-5.0); EOSINOPHILS % (AUTO) 0.9 % (0.0-8.0); HEMATOCRIT 42.5 % (42-54); LYMPHOCYTES % (AUTO) 18.4 % (21.0-51.0); MEAN CORPUSCULAR HEMOGLOBIN 29.7 pg (27.0-33.0); MEAN CORPUSCULAR HGB CONC 34.4 g/dL (32.0-36.0); MEAN CORPUSCULAR VOLUME 86.6 fL (79-99); MONOCYTES % (AUTO) 9.8 % (3.0-13.0); NEUTROPHILS % (AUTO) 69.8 % (40.0-77.0); PLATELET COUNT (AUTO) 463 K/uL (130-400); RED BLOOD CELL COUNT(AUTO) 4.91 MIL/uL (4.50-6.20); RED CELL DISTRIBUTION WIDTH 11.9 % (11.0-15.5); WHITE BLOOD COUNT (AUTO) 12.1 K/uL (4.8-10.8)
[2020-05-18 06:36] LABS: BILIRUBIN,TOTAL 0.6 mg/dL (0.2-1.0); CREATININE 0.9 mg/dL (0.5-1.5); POTASSIUM 4.1 mmol/L (3.5-5.1); TOTAL PROTEIN, SERUM 7.6 g/dL (6.0-8.3)
[2020-05-18] MEDS: DOCUSATE SODIUM 100 MG CAP PO SCH ×2 (08:38→22:43)
[2020-05-18] MEDS: ATORVASTATIN CALCIUM 40 MG TABLET PO SCH (08:39)
[2020-05-18] MEDS: POLYETHYLENE GLYCOL 3350 17 GM POWD.PACK PO SCH (08:39)
[2020-05-18] MEDS: MAGNESIUM OXIDE 400 MG TABLET PO SCH (08:39)
[2020-05-18] MEDS: ISOSORBIDE MONONITRATE 20 MG TABLET PO SCH ×2 (08:39→22:47)
[2020-05-18 08:40] VITALS: BP 96/48
[2020-05-18] MEDS: CLOPIDOGREL BISULFATE 75 MG TAB PO SCH (09:47)
[2020-05-18] MEDS: SPIRONOLACTONE 25 MG TAB PO SCH (09:47)
[2020-05-18] MEDS: ASPIRIN 81MG TAB.CHEW PO SCH (09:47)
[2020-05-18 11:59] VITALS: BP 104/59
[2020-05-18] MEDS: METOPROLOL TARTRATE 50 MG TAB PO SCH ×2 (12:20→22:47)
[2020-05-18] MEDS: FUROSEMIDE 20 MG TABLET PO SCH ×2 (12:59→23:00)
[2020-05-18 16:38] VITALS: BP 95/53
[2020-05-18 20:33] VITALS: BP 119/67
[2020-05-18] MEDS: INSULIN GLARGINE 100 UNITS/ML 10 ML VIAL SQ SCH (22:57)
[2020-05-19] VITALS (9 sets, daily range): BP systolic 73–122; BP diastolic 40–73
[2020-05-19] MEDS ORDERED: SODIUM CHLORIDE 0.9% 500ML 500 ML IV ONE (00:43)
[2020-05-19] MEDS: VANCOMYCIN 1GM+NS 250ML 250 ML IV SCH ×3 (05:38→21:10)
[2020-05-19] MEDS: MEROPENEM 1 GM VIAL IVP SCH ×3 (05:38→21:09)
[2020-05-19 06:15] LABS: BASOPHILS % (AUTO) 0.6 % (0.0-5.0); EOSINOPHILS % (AUTO) 1.4 % (0.0-8.0); HEMATOCRIT 40.2 % (42-54); LYMPHOCYTES % (AUTO) 30.9 % (21.0-51.0); MEAN CORPUSCULAR HEMOGLOBIN 29.7 pg (27.0-33.0); MEAN CORPUSCULAR HGB CONC 34.1 g/dL (32.0-36.0); MEAN CORPUSCULAR VOLUME 87.2 fL (79-99); MONOCYTES % (AUTO) 11.5 % (3.0-13.0); NEUTROPHILS % (AUTO) 55.4 % (40.0-77.0); PLATELET COUNT (AUTO) 423 K/uL (130-400); RED BLOOD CELL COUNT(AUTO) 4.61 MIL/uL (4.50-6.20); RED CELL DISTRIBUTION WIDTH 11.9 % (11.0-15.5); WHITE BLOOD COUNT (AUTO) 8.5 K/uL (4.8-10.8)
[2020-05-19 06:42] LABS: ALBUMIN 2.7 g/dL (3.5-5.0); BILIRUBIN,TOTAL 0.5 mg/dL (0.2-1.0); CREATININE 0.9 mg/dL (0.5-1.5); TOTAL PROTEIN, SERUM 7.4 g/dL (6.0-8.3)
[2020-05-19] MEDS: INSULIN HUMULIN R 100 UNIT/ML 3ML SQ SCH ×7 (07:05→21:14)
[2020-05-19] MEDS: METOPROLOL TARTRATE 50 MG TAB PO SCH ×2 (09:00→21:09)
[2020-05-19] MEDS: SPIRONOLACTONE 25 MG TAB PO SCH (09:00)
[2020-05-19] MEDS: DOCUSATE SODIUM 100 MG CAP PO SCH ×2 (09:37→21:11)
[2020-05-19] MEDS: ASPIRIN 81MG TAB.CHEW PO SCH (09:38)
[2020-05-19] MEDS: ATORVASTATIN CALCIUM 40 MG TABLET PO SCH (09:38)
[2020-05-19] MEDS: MAGNESIUM OXIDE 400 MG TABLET PO SCH (09:38)
[2020-05-19] MEDS: CLOPIDOGREL BISULFATE 75 MG TAB PO SCH (09:38)
[2020-05-19] MEDS: ISOSORBIDE MONONITRATE 20 MG TABLET PO SCH (09:39)
[2020-05-19] MEDS: POLYETHYLENE GLYCOL 3350 17 GM POWD.PACK PO SCH (09:40)
[2020-05-19] MEDS: FUROSEMIDE 20 MG TABLET PO SCH (11:00)
[2020-05-19] MEDS: INSULIN GLARGINE 100 UNITS/ML 10 ML VIAL SQ SCH (21:15)
[2020-05-20 04:15] VITALS: BP 93/58
[2020-05-20] MEDS: VANCOMYCIN 1GM+NS 250ML 250 ML IV SCH ×2 (05:36→15:12)
[2020-05-20] MEDS: MEROPENEM 1 GM VIAL IVP SCH ×3 (05:37→20:54)
[2020-05-20 05:51] LABS: CREATININE 0.9 mg/dL (0.5-1.5); MAGNESIUM 1.9 mg/dL (1.80-2.40); POTASSIUM 3.7 mmol/L (3.5-5.1)
[2020-05-20 05:59] LABS: BASOPHILS % (AUTO) 0.3 % (0.0-5.0); EOSINOPHILS % (AUTO) 0.7 % (0.0-8.0); HEMATOCRIT 43.9 % (42-54); MEAN CORPUSCULAR HEMOGLOBIN 29.4 pg (27.0-33.0); MEAN CORPUSCULAR HGB CONC 33.9 g/dL (32.0-36.0); MEAN CORPUSCULAR VOLUME 86.6 fL (79-99); MONOCYTES % (AUTO) 12.3 % (3.0-13.0); NEUTROPHILS % (AUTO) 57.4 % (40.0-77.0); PLATELET COUNT (AUTO) 472 K/uL (130-400); RED BLOOD CELL COUNT(AUTO) 5.07 MIL/uL (4.50-6.20); RED CELL DISTRIBUTION WIDTH 11.9 % (11.0-15.5); WHITE BLOOD COUNT (AUTO) 10.6 K/uL (4.8-10.8)
[2020-05-20] MEDS: INSULIN HUMULIN R 100 UNIT/ML 3ML SQ SCH ×7 (07:30→21:44)
[2020-05-20 08:00] VITALS: BP 91/65
[2020-05-20] MEDS: METOPROLOL TARTRATE 50 MG TAB PO SCH ×2 (09:00→20:54)
[2020-05-20] MEDS: MAGNESIUM OXIDE 400 MG TABLET PO SCH (09:18)
[2020-05-20] MEDS: DOCUSATE SODIUM 100 MG CAP PO SCH ×2 (09:18→20:54)
[2020-05-20] MEDS: ASPIRIN 81MG TAB.CHEW PO SCH (09:18)
[2020-05-20] MEDS: CLOPIDOGREL BISULFATE 75 MG TAB PO SCH (09:19)
[2020-05-20] MEDS: POLYETHYLENE GLYCOL 3350 17 GM POWD.PACK PO SCH (09:19)
[2020-05-20] MEDS: ATORVASTATIN CALCIUM 40 MG TABLET PO SCH (09:19)
[2020-05-20 12:00] VITALS: BP 102/77
[2020-05-20] MEDS ORDERED: VANCOMYCIN 1GM+NS 250ML 250 ML IV SCH (15:13)
[2020-05-20 16:00] VITALS: BP 111/67
[2020-05-20] MEDS ORDERED: SODIUM CHLORIDE 0.9% 500ML 500 ML IV ONE (20:48)
[2020-05-20] MEDS ORDERED: SODIUM CHLORIDE 0.9% 10 ML VIAL ONE (20:49)
[2020-05-20 21:00] VITALS: BP 152/65
[2020-05-20] MEDS: INSULIN GLARGINE 100 UNITS/ML 10 ML VIAL SQ SCH (21:44)
[2020-05-20 22:50] VITALS: BP 118/71
[2020-05-21 04:42] VITALS: BP_SYST 106; BP_SYST 118; BP_DIAS 56; BP_DIAS 61
[2020-05-21 06:09] LABS: BASOPHILS % (AUTO) 0.2 % (0.0-5.0); EOSINOPHILS % (AUTO) 0.4 % (0.0-8.0); HEMATOCRIT 42.8 % (42-54); MEAN CORPUSCULAR HGB CONC 33.6 g/dL (32.0-36.0); MEAN CORPUSCULAR VOLUME 86.1 fL (79-99); MONOCYTES % (AUTO) 10.2 % (3.0-13.0); NEUTROPHILS % (AUTO) 59.9 % (40.0-77.0); PLATELET COUNT (AUTO) 450 K/uL (130-400); RED BLOOD CELL COUNT(AUTO) 4.97 MIL/uL (4.50-6.20); RED CELL DISTRIBUTION WIDTH 11.9 % (11.0-15.5); WHITE BLOOD COUNT (AUTO) 11.1 K/uL (4.8-10.8)
[2020-05-21] MEDS: MEROPENEM 1 GM VIAL IVP SCH ×2 (06:11→13:57)
[2020-05-21] MEDS: VANCOMYCIN 1GM+NS 250ML 250 ML IV SCH ×2 (06:12→13:57)
[2020-05-21 06:27] LABS: CREATININE 0.8 mg/dL (0.5-1.5); MAGNESIUM 1.9 mg/dL (1.80-2.40); POTASSIUM 3.7 mmol/L (3.5-5.1)
[2020-05-21] MEDS: INSULIN HUMULIN R 100 UNIT/ML 3ML SQ SCH ×6 (07:13→16:45)
[2020-05-21 08:00] VITALS: BP 109/68
[2020-05-21] MEDS: DOCUSATE SODIUM 100 MG CAP PO SCH (08:51)
[2020-05-21] MEDS: ASPIRIN 81MG TAB.CHEW PO SCH (08:51)
[2020-05-21] MEDS: CLOPIDOGREL BISULFATE 75 MG TAB PO SCH (08:51)
[2020-05-21] MEDS: MAGNESIUM OXIDE 400 MG TABLET PO SCH (08:51)
[2020-05-21] MEDS: ATORVASTATIN CALCIUM 40 MG TABLET PO SCH (08:51)
[2020-05-21] MEDS: POLYETHYLENE GLYCOL 3350 17 GM POWD.PACK PO SCH (08:52)
[2020-05-21] MEDS: METOPROLOL TARTRATE 50 MG TAB PO SCH (08:52)
[2020-05-21 12:00] VITALS: BP 111/73
[2020-05-21] MEDS ORDERED: MORPHINE SULFATE 2 MG/ML 1ML SYG ONE (14:24)
[2020-05-21] MEDS ORDERED: MORPHINE SULFATE 2 MG/ML 1ML SYG IVP ONE (15:30)
[2020-05-21 16:00] VITALS: BP 100/49
[2020-05-21] MEDS ORDERED: HONEY 1 APPL/ML TUBE TP SCH (16:15)
== END 2020-05-21 19:30 | disposition home or self-care (01) | DRG 853 ==
LOC: EDH 11:08 → EDHIP 11:09 → 3BH 05-06 16:53 → 2DH 05-07 08:38
PROVIDERS: ADMIT Internal Medicine; ATTEND Internal Medicine
PROC: 0D9P0ZZ Drainage of Rectum, Open Approach (ICD-10-PCS; principal; 2020-05-07 09:43)
PROC: 0JB70ZZ Excision of Back Subcutaneous Tissue and Fascia, Open Approach (ICD-10-PCS; 2020-05-15)
DX: A41.9 Sepsis, unspecified organism (principal); U07.1 COVID-19; J96.91 Respiratory failure, unspecified with hypoxia; J12.82 Pneumonia due to coronavirus disease 2019; L02.31 Cutaneous abscess of buttock; L02.215 Cutaneous abscess of perineum; K61.1 Rectal abscess; L03.317 Cellulitis of buttock; E87.1 Hypo-osmolality and hyponatremia; Z16.24 Resistance to multiple antibiotics; F17.210 Nicotine dependence, cigarettes, uncomplicated; I25.5 Ischemic cardiomyopathy; I25.2 Old myocardial infarction; I11.0 Hypertensive heart disease with heart failure; I50.9 Heart failure, unspecified; E87.6 Hypokalemia; E83.42 Hypomagnesemia; Z74.01 Bed confinement status; I25.10 Atherosclerotic heart disease of native coronary artery without angina pectoris; E11.9 Type 2 diabetes mellitus without complications; B95.62 Methicillin resistant Staphylococcus aureus infection as the cause of diseases classified elsewhere; R07.89 Other chest pain; E66.01 Morbid (severe) obesity due to excess calories; L98.429 Non-pressure chronic ulcer of back with unspecified severity; R65.20 Severe sepsis without septic shock; Z90.49 Acquired absence of other specified parts of digestive tract; Z95.5 Presence of coronary angioplasty implant and graft; Z68.36 Body mass index [BMI] 36.0-36.9, adult
CPT/HCPCS: 36415; 71045; 74176; 74177; 76857; 80048; 80053; 80202; 82550; 82728; 82948; 83036; 83605; 83615; 83735; 83880; 84145; 84484; 85025; 85378; 85610; 85730; 86140; 87040; 87070; 87076; 87077; 87186; 87205; 87426; 93005; 93306; 93356; G0378; J0330; J0692; J1100; J1170; J1815; J1885; J2001; J2175; J2185; J2250; J2270; J2370; J2405; J2543; J2704; J2710; J3010; J3370; J3490; J7030; J7040; J7050; Q9967; U0003